=== PATIENT | female | born 1980 ===

== ENCOUNTER 2022-09-01 12:29 | Emergency (ER) | payer SELFPAY ==
[~2022-09-01] VITALS: Ht 165.1 cm; Wt 66.0 kg
[2022-09-01 12:33] VITALS: BP 112/66
[2022-09-01] MEDS ORDERED: SODIUM CHLORIDE 0.9% 1,000 ML IV ONE (12:45)
== END 2022-09-01 13:10 | disposition left against medical advice (07) ==
LOC: ER 12:29
DX: R55 Syncope and collapse (principal); R11.10 Vomiting, unspecified; I95.9 Hypotension, unspecified; R19.7 Diarrhea, unspecified; Z91.199 Patient's noncompliance with other medical treatment and regimen due to unspecified reason
CPT/HCPCS: 93005; 99283; J7030